=== PATIENT | male | born 1970 | race Caucasian/White ===

== ENCOUNTER → 2020-08-05 10:48 | Outpatient (BNVA) | payer OTHER, SELFPAY | PROVIDERS: PCP Internal Medicine; Referring Provider Internal Medicine; Visit Provider Internal Medicine | DX: E11.65 Type 2 diabetes mellitus with hyperglycemia (principal); E78.5 Hyperlipidemia, unspecified; I10 Essential (primary) hypertension; E29.1 Testicular hypofunction; E55.9 Vitamin D deficiency, unspecified | CPT/HCPCS: 82947; 99202 ==

== ENCOUNTER 2020-08-09 08:25 | Outpatient (REF) | payer OTHER, SELFPAY ==
[2020-08-09 09:01] LABS: Estimated Average Glucose 108 mg/dL; Hemoglobin A1c % 5.4 %
[2020-08-09 09:15] LABS: Alanine Aminotransferase 25 U/L (0-40); Albumin Level 4.2 g/dL (3.5-5.0); Alkaline Phosphatase 59 U/L (39-117); Anion Gap 13 (12-20); Aspartate Amino Transferase 17 U/L (5-37); Bilirubin Total 0.3 mg/dL (0.0-1.0); Blood Urea Nitrogen 12 mg/dL (9-16); Calcium 9.2 mg/dL (8.4-10.2); Carbon Dioxide 28 mmol/L (22-29); Chloride 103 mmol/L (96-108); Cholesterol 135 mg/dL; Estimated Glomerular Filt Rate > 60; Glucose Random 186 mg/dL (60-115); HDL Cholesterol 38 mg/dL; LDL Cholesterol Calculated 47 mg/dl; Sodium 140 mmol/L (135-145); Total Protein 6.8 g/dL (6.5-8.0); Triglycerides 252 mg/dL
[2020-08-09 09:37] LABS: Free T4 (Free Thyroxine) 0.92 ng/dL (0.71-1.85); Thyroid Stimulating Hormone 1.44 uIU/mL (0.32-4.0); Vitamin D 25-OH Total 22.8 ng/mL (>30)
[2020-08-09 10:40] LABS: Creatinine Urine 207.96 mg/dL; Microalbum/Creatinine Ratio Ur 4.8 ug/mg cr
[2020-08-10 08:52] LABS: Triiodothyronine T3 Total 90 ng/dL (76-181)
[2020-08-10 09:17] LABS: LDL Cholesterol Direct 76 mg/dL (<100)
[2020-08-10 13:12] LABS: Follicle Stimulating Hormone 22.6 mIU/mL (1.6-8.0); Lutenizing Hormone 10.3 mIU/mL (1.5-9.3); Prolactin Undiluted 15.1 ng/mL (2.0-18.0)
[2020-08-11 21:42] LABS: Sex Hormone Binding Globulin 18 nmol/L (10-50)
[2020-08-11 22:08] LABS: Adrenocorticotropic Hormone 18 pg/mL (6-50)
[2020-08-13 12:12] LABS: Testosterone, Free 55.6 pg/mL (35.0-155.0); Testosterone, Total 227 ng/dL (250-1100)
[2020-08-13 21:17] LABS: IGF-1 (Somatomedin C) 179 ng/mL (52-328); IGF-1 Z Score (Male) 0.5 SD (-2.0 - +2.0)
== END 2020-08-09 08:26 | disposition home or self-care (01) ==
LOC: HO.LAB 08:25
PROVIDERS: PCP Internal Medicine; Visit Provider Internal Medicine
DX: E55.9 Vitamin D deficiency, unspecified (principal); E11.9 Type 2 diabetes mellitus without complications; E29.1 Testicular hypofunction
CPT/HCPCS: 36415; 80053; 80061; 82024; 82043; 82306; 82533; 83001; 83002; 83036; 83721; 84146; 84270; 84305; 84402; 84403; 84439; 84443; 84480

== ENCOUNTER → 2020-09-23 10:22 | Outpatient (BNVA) | payer OTHER, SELFPAY | PROVIDERS: PCP Internal Medicine; Visit Provider Dietitian, Registered ==

== ENCOUNTER → 2020-10-13 09:51 | Outpatient (BNVA) | payer OTHER, SELFPAY | PROVIDERS: PCP Internal Medicine; Visit Provider Internal Medicine | DX: E11.65 Type 2 diabetes mellitus with hyperglycemia (principal); E78.5 Hyperlipidemia, unspecified; I10 Essential (primary) hypertension; E29.1 Testicular hypofunction; E55.9 Vitamin D deficiency, unspecified | CPT/HCPCS: Q3014 ==

== ENCOUNTER → 2020-10-28 14:21 | Outpatient (BNVA) | payer OTHER, SELFPAY | PROVIDERS: PCP Internal Medicine; Visit Provider Dietitian, Registered | DX: E11.65 Type 2 diabetes mellitus with hyperglycemia (principal) | CPT/HCPCS: 97803 ==

== ENCOUNTER → 2020-12-13 13:10 | Outpatient (BNVA) | payer OTHER, SELFPAY | PROVIDERS: PCP Internal Medicine; Visit Provider Dietitian, Registered | DX: E11.65 Type 2 diabetes mellitus with hyperglycemia (principal) | CPT/HCPCS: 97803 ==

== ENCOUNTER → 2021-03-04 12:38 | Outpatient (BNVA) | payer OTHER, SELFPAY | PROVIDERS: PCP Internal Medicine; Visit Provider Urology | DX: E11.69 Type 2 diabetes mellitus with other specified complication (principal); N52.1 Erectile dysfunction due to diseases classified elsewhere; E29.1 Testicular hypofunction | CPT/HCPCS: 99212 ==

== ENCOUNTER 2021-09-29 09:49 | Outpatient (REF) | payer OTHER, SELFPAY ==
[2021-09-29 10:54] LABS: MANUAL DIFF FLAG NO
[2021-09-29 11:08] LABS: Basophils Percent Auto 0.2 % (0-2); Eosinophils Absolute Auto 0.2 X10*3/uL (0.0-0.4); Hemoglobin 13.5 g/dl (14.0-18.0); Imm Gran Abs Auto 0.02 X10*3/uL (0.00-0.03); Imm Gran Pct Auto 0.4 % (0.0-0.4); Lymphocytes Absolute Auto 0.6 X10*3/uL (1.2-4.9); Lymphocytes Percent Auto 12.5 % (20-40); Mean Corpuscular HGB Conc 32.1 g/dl (31.0-36.0); Mean Platelet Volume 12.4 fL (9.4-12.4); Monocytes Absolute Auto 0.4 X10*3/uL (0.1-1.2); Monocytes Percent Auto 7.3 % (2-11); Neutrophils Absolute Auto 3.7 x10*3/uL (2.0-8.3); Neutrophils Percent Auto 75.6 % (45-73); Red Blood Count 4.83 X10*6/uL (4.60-5.80); Red Cell Distribution Width 14.4 % (11.0-16.0)
[2021-09-29 11:30] LABS: Platelet Count 93 X10*3/uL (160-400)
[2021-09-29 11:37] LABS: Alanine Aminotransferase 16 U/L (0-40); Albumin Level 4.1 g/dL (3.5-5.0); Alkaline Phosphatase 52 U/L (39-117); Anion Gap 8 (12-20); Aspartate Amino Transferase 15 U/L (5-37); Bilirubin Total 0.4 mg/dL (0.0-1.0); Blood Urea Nitrogen 14 mg/dL (9-16); Calcium 9.7 mg/dL (8.4-10.2); Carbon Dioxide 29 mmol/L (22-29); Chloride 109 mmol/L (96-108); Estimated Glomerular Filt Rate > 60; Glucose Random 112 mg/dL (60-115); Potassium 4.8 mmol/L (3.3-5.1); Sodium 141 mmol/L (135-145); Total Protein 6.8 g/dL (6.5-8.0)
[2021-10-07 11:16] LABS: Testosterone, Total 202 ng/dL (250-1100)
== END 2021-09-29 09:50 | disposition home or self-care (01) ==
LOC: HO.LAB 09:49
PROVIDERS: Urology; PCP Internal Medicine; Referring Provider Internal Medicine; Visit Provider Nurse Practitioner
DX: Z01.818 Encounter for other preprocedural examination (principal); G47.33 Obstructive sleep apnea (adult) (pediatric); E29.1 Testicular hypofunction
CPT/HCPCS: 36415; 80053; 84402; 84403; 85025; 99202

== ENCOUNTER 2022-02-21 04:37 | Emergency (ER) | payer OTHER, SELFPAY ==
--- NOTE | ~2022-02-21 | CT_ITS ---
EXAMINATION: CT HEAD WITHOUT CONTRAST CLINICAL INFORMATION: Confusion. COMPARISON: MRI brain dated 10/30/2013 TECHNIQUE: Contiguous axial imaging was performed from the skull base to vertex without intravenous administration of contrast. This CT examination was performed using dose optimization techniques as appropriate, variously including the following: *Automated exposure control *Adjustment of mA and/or kV according to patient size (this includes techniques or standardized protocols for targeted exams where dose is matched to indication/reason for exam; i.e. extremities or head) *Use of iterative reconstruction technique DLP: 733 mGy-cm FINDINGS: There is infiltrative subcortical white matter low-attenuation change throughout the left hemisphere with mass effect resulting in rightward midline shift of approximately 1.2 cm, with medialization of the left uncus without eladio herniation. There is a smaller area of encephalomalacia subjacent to a left parietal craniotomy likely reflecting treatment related change. Low-attenuation changes extending into the left thalamus. Left lateral ventricle partially effaced. No acute intracranial hemorrhage. No extra-axial collection. Retention cyst right maxillary sinus. Remaining paranasal sinuses are clear. 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 * No herniation pattern as time. * No acute intracranial hemorrhage.
[2022-02-21 04:43] VITALS: BMI 29.5
[2022-02-21 05:02] VITALS: BP 124/82; PULSE 68; TEMP 36.8; O2SAT 98
--- NOTE | 2022-02-21 05:24 | ECG_ITS ---
Test Reason : ANXIETY Blood Pressure : / mmHG Vent. Rate : 059 BPM Atrial Rate : 059 BPM P-R Int : 194 ms QRS Dur : 094 ms QT Int : 432 ms P-R-T Axes : 043 040 -07 degrees QTc Int : 427 ms Sinus bradycardia Nonspecific T wave abnormality Abnormal ECG No previous ECGs available Referred By: Maninder Mcdaniel Electronically Signed By:KESHAWN BISHOP MD
[2022-02-21 05:45] VITALS: BP 134/80; PULSE 62; O2SAT 97
--- NOTE | 2022-02-21 05:56 | ED.PSYCH ---
HPI - Psych General Chief Complaint: Psychiatric Symptoms Stated Complaint: SI Time Seen by Provider: 02/21/22 05:23 Source: patient and EMS Mode of arrival: EMS Limitations: no limitations History of Present Illness HPI Narrative: 51-year-old male came in by ambulance for evaluation of depression and feeling unsafe at home. 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 Patient declined any drug use or alcohol use. No visual or auditory hallucination. Related Data Home Medications Medication Instructions Recorded Confirmed atorvastatin 40 mg tablet 40 mg PO 08/05/20 03/04/21 blood sugar diagnostic #10 ea 08/05/20 03/04/21 bupropion HCl 150 mg tablet,12 hr 150 mg PO DAILY 08/05/20 03/04/21 sustained-release (Wellbutrin SR) carbamide peroxide 6.5 % ear drops 0 drp otic (ears) 08/05/20 03/04/21 dexlansoprazole 60 mg 60 mg PO DAILY 08/05/20 03/04/21 capsule,biphase delayed release epinephrine 0.3 mg/0.3 mL 0.3 mg IM Q10M PRN 08/05/20 03/04/21 injection, auto-injector lamotrigine 200 mg tablet 200 mg PO BID 08/05/20 03/04/21 lancets 28 gauge #100 ea 08/05/20 03/04/21 lisinopril 2.5 mg tablet 2.5 mg PO DAILY 08/05/20 03/04/21 lithium carbonate 300 mg 300 mg PO BID 08/05/20 03/04/21 tablet,extended release lithium carbonate 450 mg 0 mg PO 08/05/20 03/04/21 tablet,extended release loratadine 10 mg tablet 10 mg PO DAILY 08/05/20 03/04/21 metformin 500 mg tablet,extended 500 mg PO BID 08/05/20 03/04/21 release 24 hr ondansetron HCl 8 mg tablet 8 mg PO TID 08/05/20 03/04/21 perphenazine 4 mg tablet 4 mg PO BID 08/05/20 03/04/21 sennosides 8.6 mg tablet 17.2 mg PO DAILY 08/05/20 03/04/21 temozolomide 140 mg capsule 0 mg PO 08/05/20 03/04/21 temozolomide 20 mg capsule 0 mg PO 08/05/20 03/04/21 trazodone 100 mg tablet 100 mg PO BEDTIME 08/05/20 03/04/21 aspirin 81 mg tablet,delayed 81 mg PO DAILY 10/13/20 03/04/21 release citalopram 10 mg tablet 10 mg PO DAILY 10/13/20 03/04/21 ergocalciferol (vitamin D2) 1,250 1,250 mcg PO QWEEK 10/13/20 03/04/21 mcg (50,000 unit) capsule pantoprazole 20 mg tablet,delayed 20 mg PO DAILY 10/13/20 03/04/21 release levetiracetam 1,000 mg tablet 1,000 mg PO BID 09/29/21 Previous Rx's Medication Instructions Recorded tamsulosin 0.4 mg capsule 0.4 mg PO BEDTIME 30 days #30 caps 06/10/20 cholecalciferol (vitamin D3) 50 50 mcg PO DAILY 30 days #30 caps 10/13/20 mcg (2,000 unit) capsule testosterone 20.25 mg/1.25 gram 2 pump topical DAILY 30 days #75 03/04/21 (1.62 %) transdermal gel pump grams tamsulosin 0.4 mg capsule (Flomax) 0.4 mg PO DAILY 90 days #90 caps 06/23/21 peg 3350-electrolytes 236 240 ml PO Q10M 1 day #4,000 mL 09/29/21 gram-22.74 gram-6.74 gram-5.86 gram solution (Golytely) Allergies Allergy/AdvReac Type Severity Reaction Status Date / Time No Known Allergies Allergy Verified 09/29/21 10:05 [No Known Allergies*] Review of Systems Review of Systems: All other systems are reviewed and are negative Constitutional: Reports as per HPI and Reports no additional constitutional complaints Eyes: Reports as per HPI and Reports no additional eye complaints Reports system reviewed and no additional complaints, except as documented Cardiovascular: Reports as per HPI and Reports no additional cardiovascular complaints Respiratory: Reports as per HPI and Reports no additional respiratory complaints Gastrointestinal: Reports as per HPI and Reports no additional gastrointestinal complaints Genitourinary: Reports no additional female genitourinary complaints Musculoskeletal: Reports no additional musculoskeletal complaints Skin/Breast: Reports system reviewed and no additional complaints, except as docu Psychiatric: Reports no additional psychiatric complaints Endocrine: Reports no additional endocrine complaints Hematologic/Lymphatic: Reports no additional hematologic/lymphatic complaints Allergic/Immunologic: Reports no additional allergic/immunologic complaints Reports system reviewed and no additional complaints, except as documented and Reports Abnormal speech present [facility] Past Medical History Medical History HLD (hyperlipidemia) HTN (hypertension) Hypogonadism Hypogonadism in male T2DM (type 2 diabetes mellitus) Vitamin D deficiency Surgical History History of brain surgery History of endoscopy Hx of biopsy Family History Family History Father Asthma Mother Congestive heart failure Unknown Diabetes Social History Social History Household Members: None Alcohol intake: never Patient Tobacco Use Status: Never used Tobacco Use of substances other than those prescribed or required for medical reasons: No Advance Directives: No Physical Exam Vital Signs: Vital Signs: Last Vital Signs Temp 98.3 F 02/21/22 05:02 Pulse 62 02/21/22 05:45 BP 134/80 02/21/22 05:45 Pulse Ox 97 02/21/22 05:45 O2 Del Method 02/21/22 05:45 BMI result Body Mass Index 29.5 vital signs have been reviewed as appeared to be correct. Blood pressure normal. Heart rate normal. Respiration rate normal. Temperature normal. Oxygen saturation normal. Appearance: Alert. Oriented X3. No acute distress. Head: Normal external exam. Normocephalic. Atraumatic. No Peña signs noted. No raccoon eyes noted Eyes: PERRLA. EOMI. Conjunctiva and sclera normal. Eyelids normal. ENT: TM's Normal. Pharynx normal. Uvula midline. Moist mucous membranes. No trismus noted. No drooling noted. No muffled voice noted. Neck: Normal inspection. Neck supple. FROM. No adenopathy. Thyroid Normal. No meningeal signs. No neck mass noted. CVS: Normal heart rate and rhythm. Heart sound normal. No murmurs noted. Pulses normal throughout. Respiratory: No respiratory distress. Painless inspiration. Breath sounds normal. No wheezes/rales/rhonchi noted. Chest nontender. No accessory muscle usage noted or decreased air movement noted. Abdomen: Soft and nontender. Bowel sounds normal in all 4 quadrants. No distention noted. No organomegaly noted. No visible injury noted. Back: No CVA tenderness. Full range of motion noted. Skin: Skin warm and dry. Normal skin color. Normal skin turgor. No rashes/lesions/lacerations noted. Extremities: No lower extremity edema. Extremities exhibit normal range of motion. Extremities nontender. Neuro: Oriented X 3. Cranial nerve exam: II-XII are grossly intact No motor deficit. No sensory deficit. Reflexes normal. Patient Orientation: Person, Place, Time and Situation Level of Consciousness: Awake, Appropriate and Alert Patient Behavior: Appropriate, Guarded, Cooperative and Anxious Mood Description: Constricted, Blunted and Apprehensive Affect Description: Constricted, Blunted and Apprehensive Patient Cognition Impaired: No Ability to Follow Directions: Excellent Speech Pattern: Clear, Appropriate and Spontaneous Speech Memory Description: Intact, Immediate Intact and Short Term Intact Hallucinations: None Delusions: Not Present Thought Process: Intact Thought Content: positive for Intact, positive for Logical, admit to Suicidal Ideation and denies Homicidal Ideation. Depressive Symptoms: Not present Judgement: Good Judgement and Insight: Intact Discharge Plan Discharge Clinical Impression: Depression, Acute anxiety Patient Disposition: Still a Patient Prescriptions: No Action tamsulosin 0.4 mg capsule 0.4 mg PO BEDTIME 30 Days Qty: 30 3RF tamsulosin [Flomax] 0.4 mg capsule 0.4 mg PO DAILY 90 Days Qty: 90 2RF ergocalciferol (vitamin D2) 1,250 mcg (50,000 unit) capsule 1,250 mcg PO QWEEK pantoprazole 20 mg tablet,delayed release (DR/EC) 20 mg PO DAILY aspirin 81 mg tablet,delayed release (DR/EC) 81 mg PO DAILY citalopram 10 mg tablet 10 mg PO DAILY cholecalciferol (vitamin D3) 50 mcg (2,000 unit) capsule 50 mcg PO DAILY 30 Days Qty: 30 11RF Dexilant 60 mg capsule,biphase delayed releas 60 mg PO DAILY loratadine 10 mg tablet 10 mg PO DAILY lisinopril 2.5 mg tablet 2.5 mg PO DAILY metformin 500 mg tablet extended release 24 hr 500 mg PO BID lithium carbonate 450 mg tablet extended release 0 mg PO carbamide peroxide 6.5 % drops 0 drp otic (ears) lithium carbonate 300 mg tablet extended release 300 mg PO BID trazodone 100 mg tablet 100 mg PO BEDTIME perphenazine 4 mg tablet 4 mg PO BID ondansetron HCl 8 mg tablet 8 mg PO TID epinephrine 0.3 mg/0.3 mL auto-injector 0.3 mg IM Q10M PRN Rx Instructions: for 2 doses lamotrigine 200 mg tablet 200 mg PO BID bupropion HCl [Wellbutrin SR] 150 mg tablet sustained-release 12 hr 150 mg PO DAILY temozolomide 20 mg capsule 0 mg PO temozolomide 140 mg capsule 0 mg PO (DME) FreeStyle Lite Strips Strip See Rx Instructions Not Applicable DAILY Qty: 10 Rx Instructions: As directed (DME) lancets 28 gauge misc See Rx Instructions topical DAILY Qty: 100 Rx Instructions: As directed sennosides 8.6 mg tablet 17.2 mg PO DAILY atorvastatin 40 mg tablet 40 mg PO testosterone 20.25 mg/1.25 gram (1.62 %) gel in metered-dose pump 2 pump topical DAILY 30 Days Qty: 75 1RF Rx Instructions: apply 2 pumps over max area of EACH upper arm and shoulder peg 3350-electrolytes [Golytely] 236-22.74-6.74 -5.86 gram recon soln 240 ml PO Q10M 1 Days Qty: 4000 0RF Rx Instructions: until fecal effluent is clear; do not exceed a total volume of 2,000 mL levetiracetam 1,000 mg tablet 1,000 mg PO BID
[2022-02-21 06:14] LABS: Basophils Percent Auto 0.3 % (0-2); PLT CLUMP 1; Red Blood Count 4.71 X10*6/uL (4.60-5.80); SCAN SMEAR FLAG 1
[2022-02-21 06:14] LABS: Appearance Urine CLEAR; Color Urine YELLOW; Glucose Urine UA NEG (NEG); Leukocyte Esterase Urine NEG (NEG); Nitrite Urine NEG (NEG); PH 6.5 (5.0-8.0); Urine Blood NEG (NEG); Urine Ketones NEG (NEG); Urine Protein NEG (NEG-TRACE)
[2022-02-21 06:15] LABS: MANUAL DIFF FLAG NO
[2022-02-21 06:16] LABS: Eosinophils Absolute Auto 0.2 X10*3/uL (0.0-0.4); Hematocrit 38.6 % (42.0-52.0); Hemoglobin 12.7 g/dl (14.0-18.0); Imm Gran Abs Auto 0.02 X10*3/uL (0.00-0.03); Imm Gran Pct Auto 0.3 % (0.0-0.4); Lymphocytes Absolute Auto 0.9 X10*3/uL (1.2-4.9); Lymphocytes Percent Auto 16.1 % (20-40); Mean Corpuscular HGB Conc 32.9 g/dl (31.0-36.0); Mean Platelet Volume 12.2 fL (9.4-12.4); Monocytes Absolute Auto 0.4 X10*3/uL (0.1-1.2); Monocytes Percent Auto 6.8 % (2-11); Neutrophils Absolute Auto 4.2 x10*3/uL (2.0-8.3); Neutrophils Percent Auto 73.5 % (45-73); Red Cell Distribution Width 15.7 % (11.0-16.0)
[2022-02-21 06:18] LABS: Platelet Count 93 X10*3/uL (160-400); White Blood Count 5.7 X10*3/uL (4.8-10.8)
[2022-02-21 06:27] LABS: COVID-19 Test Negative (Negative)
[2022-02-21 06:31] LABS: Amphetamine Screen Urine Not Detected (Not Detect); Barbiturates, Urine Not Detected (Not Detect); Benzodiazepines Screen Urine Not Detected (Not Detect); Cannabinoid Screen Urine Not Detected (Not Detect); Cocaine Screen Urine Not Detected (Not Detect); Fentanyl, urine Not Detected (Not Detect); Opiate Screen Urine Not Detected (Not Detect); Phencyclidine Screen Urine Not Detected (Not Detect)
[2022-02-21 06:32] LABS: Alanine Aminotransferase 9 U/L (0-40); Albumin Level 3.8 g/dL (3.5-5.0); Alkaline Phosphatase 49 U/L (39-117); Anion Gap 14 (12-20); Aspartate Amino Transferase 10 U/L (5-37); Bilirubin Direct 0.2 mg/dL (0.0-0.5); Bilirubin Total 0.4 mg/dL (0.0-1.0); Blood Urea Nitrogen 16 mg/dL (9-16); Calcium 8.7 mg/dL (8.4-10.2); Carbon Dioxide 23 mmol/L (22-29); Chloride 107 mmol/L (96-108); Creatinine Clr Calc Pharmacy 81.9; Estimated Glomerular Filt Rate > 60; Glucose Random 162 mg/dL (60-115); Lipase 30 U/L (8-78); Potassium 3.5 mmol/L (3.3-5.1); Sodium 140 mmol/L (135-145); Total Protein 6.5 g/dL (6.5-8.0)
--- NOTE | 2022-02-21 06:54 | MHC.CARE ---
Smart sheet submitted
[2022-02-21 07:30] VITALS: BP 124/79; PULSE 67; RESP 17; TEMP 36.7; O2SAT 97
[2022-02-21 10:14] VITALS: BP 135/82; PULSE 60; RESP 16; TEMP 36.6; O2SAT 99
== END 2022-02-21 10:57 | disposition still patient (30) ==
PROVIDERS: Emergency Medicine; Emergency Provider Emergency Medicine Emergency Medical Services; PCP Internal Medicine
DX: F32.A Depression, unspecified (principal); F41.9 Anxiety disorder, unspecified; R45.851 Suicidal ideations; Z20.822 Contact with and (suspected) exposure to COVID-19; I10 Essential (primary) hypertension; E11.9 Type 2 diabetes mellitus without complications; E78.5 Hyperlipidemia, unspecified; Z79.02 Long term (current) use of antithrombotics/antiplatelets; Z79.899 Other long term (current) drug therapy; Z79.84 Long term (current) use of oral hypoglycemic drugs; Z79.82 Long term (current) use of aspirin
CPT/HCPCS: 70450; 80048; 80076; 80307; 81003; 83690; 85025; 87635; 93005; 99285